=== PATIENT | female | born 1975 | race African-American/Black ===

== ENCOUNTER 2017-02-16 05:55 | Day surgery (SDC) | payer OTHER ==
[2017-02-16 08:03] LABS: HCG,QUAL RESULT NEGATIVE (NEGATIVE)
[2017-02-16] MEDS: MIDAZOLAM HCL 5 MG/5 ML VIAL ONE ×3 (08:51→09:01)
[2017-02-16] MEDS: fentaNYL CITRATE/PF 100 MCG/2 ML AMP ONE ×2 (08:51→08:54)
[2017-02-16 10:19] VITALS: BP_SYST 117
== END 2017-02-16 10:15 | disposition home or self-care (01) ==
LOC: SDS 05:55
PROVIDERS: ATTEND Surgery
DX: K60.4 Rectal fistula (principal); K64.8 Other hemorrhoids
CPT/HCPCS: 45378; 84703; J2250; J7030; J3010

== ENCOUNTER 2017-04-13 11:24 | Day surgery (SDC) | payer OTHER ==
[2017-04-13 12:25] LABS: HCG,QUAL RESULT NEGATIVE (NEGATIVE)
[2017-04-13] MEDS ORDERED: ONDANSETRON HCL 4 MG/2 ML VIAL ONE (15:05)
[2017-04-13] MEDS ORDERED: NS IRRIG SOLN 1000 ML IR ONE (15:05)
[2017-04-13] MEDS ORDERED: LR 1,000 ML IV.SOLN IV ONE (15:05)
[2017-04-13] MEDS ORDERED: MIDAZOLAM HCL 5 MG/ML VIAL (VERSED) IV ONE (15:05)
[2017-04-13] MEDS ORDERED: CEFAZOLIN 2 GM IVPB PREMIX 50 ML IV ONE (15:05)
[2017-04-13 16:08] VITALS: BP_SYST 102
== END 2017-04-13 19:30 | disposition home or self-care (01) ==
LOC: SDS 11:24 → SMU 11:24 → SDS 19:30
PROVIDERS: ATTEND Surgery
DX: K64.8 Other hemorrhoids (principal); K60.4 Rectal fistula
CPT/HCPCS: 46255; 46707; 84703; 88304; J0690; J2250; J2405; J7120; 88305